=== PATIENT | female | born 1995 | race Caucasian/White ===

== ENCOUNTER → 2020-05-02 16:26 | Outpatient (CLI) | payer OTHER, SELFPAY ==
[2020-05-02] MEDS: COVID-19 VACC #1, MRNA(MOD) 100 MCG/0.5 ML VIAL IM (16:32)
== END ==
PROVIDERS: Visit Provider Internal Medicine
DX: Z23 Encounter for immunization (principal)
CPT/HCPCS: 0011A; 91301

== ENCOUNTER → 2020-05-30 16:27 | Outpatient (CLI) | payer OTHER, SELFPAY ==
[2020-05-30] MEDS: COVID-19 VACC #2, MRNA(MOD) 100 MCG/0.5 ML VIAL IM (16:40)
== END ==
PROVIDERS: Visit Provider Internal Medicine
DX: Z23 Encounter for immunization (principal)
CPT/HCPCS: 0012A; 91301

== ENCOUNTER → 2024-04-01 12:12 | Outpatient (CLI) | payer OTHER, SELFPAY ==
[2024-04-01 12:58] LABS: Add Manual Diff / Slide Review NO; Basophils Absolute Auto 0 /uL (0-100); Basophils Percent Auto 0.4 % (0-2); Eosinophils Absolute Auto 100 /uL (0-450); Eosinophils Percent Auto 1.2 % (2-4); Hematocrit 38.2 % (36-46); Hemoglobin 13.2 g/dL (12.0-16.0); Lymphocytes Absolute Auto 2100 /uL (1100-4500); Lymphocytes Percent Auto 29.1 % (25-40); Mean Corpuscular HGB Conc 34.6 % (30-36); Mean Corpuscular Hemoglobin 30.8 PG (26-34); Mean Corpuscular Volume 88.8 fL (80-100); Monocytes Absolute Auto 400 /uL (0-900); Monocytes Percent Auto 4.9 % (3-14); Neutrophils Absolute Auto 4700 /uL (1500-7000); Neutrophils Percent Auto 64.4 % (50-75); Platelet Count 165 X10^3/uL (150-400); Red Blood Cell Count 4.31 X10^6/uL (4.0-5.2); Red Cell Distribution Width 13.5 % (11.6-14.8); White Blood Cell Count 7.3 X10^3/uL (4.5-11.0)
[2024-04-01 13:19] LABS: Natera Collection Specimen Collected
[2024-04-01 13:21] LABS: Alanine Aminotransferase 15 IU/L (<35); Aspartate Aminotransferase 22 IU/L (14-36); BUN Creatinine Ratio 11.3 (6-22); Blood Urea Nitrogen 6 mg/dL (7-17); Estimated Glomerular Filt Rate > 60 mL/min (>60); Uric Acid 2.6 mg/dL (2.5-6.2)
[2024-04-03 10:11] LABS: RPR Screen Non Reactive (Non Reactive)
[2024-04-03 12:37] LABS: Varicella IgG Antibody Reactive (Non Reactive)
[2024-04-04 15:06] LABS: Hepatitis B Surface Antigen NEGATIVE s/c (NEGATIVE); Rubella Antibody IgG 7.7 IU/mL (>15)
[2024-04-04 15:22] LABS: HIV 1 & 2 Ab/Ag 4th Gen Combo NEGATIVE (NEGATIVE); Hep C Virus Ab w/Reflex Quant NEGATIVE s/c (NEGATIVE)
== END ==
PROVIDERS: PCP Family Medicine; Referring Provider Obstetrics & Gynecology; Visit Provider Obstetrics & Gynecology
DX: O13.9 Gestational [pregnancy-induced] hypertension without significant proteinuria, unspecified trimester (principal); Z3A.14 14 weeks gestation of pregnancy
CPT/HCPCS: 80055; 82565; 84450; 84460; 84520; 84550; 86787; 86803; 86850; 86900; 86901; 87086; 87389

== ENCOUNTER → 2024-05-04 15:18 | Outpatient (CLI) | payer OTHER, SELFPAY ==
[2024-05-07 20:07] LABS: AFP Value 72.7 ng/mL (.); Gest Age on Col Date 18.7 weeks (.); Insulin Dep Diabetes No (.); OSBR Risk 1IN 1278 (.); Results Report (.); Test Results *Screen Negative* (.)
[2024-05-11 10:03] LABS: PDF SCANNED
== END ==
PROVIDERS: PCP Family Medicine; Referring Provider Specialist; Visit Provider Specialist
DX: Z34.82 Encounter for supervision of other normal pregnancy, second trimester (principal); Z3A.19 19 weeks gestation of pregnancy
CPT/HCPCS: 36415; 82105

== ENCOUNTER → 2024-05-20 08:42 | Outpatient (CLI) | payer OTHER, SELFPAY ==
--- NOTE | 2024-05-20 08:44 | DI.US.S_ITS ---
PROCEDURE: US OB >= 14 WEEKS FETUS INDICATIONS: ANATOMY OUTSIDE/PRIOR DATING DATA: IU I and insemination date is indeterminate at time of exam. LMP-based estimated date of delivery (ELLIS): 09/25/2024 as provided.. First dating scan (date and location): 05/20/2024. Estimated date of delivery (ELLIS) from first dating scan: 09/21/2024 Working ELLIS is 09/25/2024 as provided by the referring clinician.. TECHNIQUE: Real-time scanning was performed of the fetus, with image documentation and biometric measurements. COMPARISON: None. FINDINGS: General: A single living intrauterine gestation is present. Presentation: Variable. Placenta: Placental position is posterior , and low-lying with the inferior margin of the placenta 1.8 cm above the internal cervical os. Amniotic fluid index: 19.6 cm, normal range is 5-24 cm. Single deepest vertical pocket is 7.4 cm. heart rate: 143 beats per minute. Maternal cervical canal: 4.8 cm long. Normal lower limit is 2.5 cm. biometrics: Biparietal diameter: 22 weeks 2 days Head circumference: 21 weeks 3 days Abdominal circumference: 22 weeks 4 days Femur length: 22 weeks 5 days Clinically estimated gestational age: 21 weeks 5 days Composite gestational age from present scan: 22 weeks 2 days Estimated weight and percentile: 513 g; 85th percentile Anatomic survey: Neuro: Ventricles are non-dilated at less than 10 mm. Cisterna magna is normal at 3-11 mm. Cerebellum is normal in size and morphology. Nuchal skin fold: Normal at less than 6 mm between 14-21 weeks gestational age. Face: Nose and lips, facial profile are normal. Spine: No evidence for spina bifida. Heart: 4-chambered heart is present, with normal ventricular outflow tracts. Diaphragm: Diaphragm is intact. Stomach: Left-sided stomach is present. Kidneys: No hydronephrosis. Normal is less than 5 mm in 2nd trimester, less than 7 mm in 3rd trimester. Cord: 3-vessel cord has orthotopic insertion. Bladder: Normal in size. Extremities: All 4 extremities identified. IMPRESSION: 1. Single living IUP with composite gestational age of 22 weeks 2 days corresponding to ultrasound ELLIS of 09/21/2024. 2. Unremarkable anatomic survey. 3. Low lying placenta and short-term follow-up ultrasound is recommended. We strive to produce accurate, complete, and clear reports of imaging services. To assist us in improving patient care, this report was composed using standard report templates and voice recognition software. Therefore, it may contain abnormal punctuation, insertions and/or omissions. Occasional wrong-word or sound-alike substitutions may occur. Though we review the report and make efforts to correct it, we do recommend that the report be read carefully in proper context to recognize any text inaccuracies. Dictated by: Edmond CHRISTINA Interpreted: Roman Weston MD on 05/20/2024 at 16:05 Transcribed by: LAUREN on 05/20/2024 at 16:08 Approved by: Roman Weston M.D. on 05/26/2024 at 23:23
== END ==
PROVIDERS: PCP Family Medicine; Referring Provider Specialist; Visit Provider Specialist
DX: Z36.89 Encounter for other specified antenatal screening (principal); O44.42 Low lying placenta NOS or without hemorrhage, second trimester; Z3A.22 22 weeks gestation of pregnancy
CPT/HCPCS: 76811

== ENCOUNTER → 2024-05-27 16:05 | Outpatient (CLI) | payer OTHER, SELFPAY ==
[2024-05-27 18:03] LABS: Hematocrit 39.4 % (36-46); Hemoglobin 13.7 g/dL (12.0-16.0); Platelet Count 150 X10^3/uL (150-400)
[2024-05-27 18:16] LABS: GTT (PREG) 1 Hour PP 50gm Dose 130 mg/dL (76-139)
== END ==
LOC: LAB 16:06
PROVIDERS: PCP Family Medicine; Referring Provider Obstetrics & Gynecology; Visit Provider Obstetrics & Gynecology
DX: Z34.82 Encounter for supervision of other normal pregnancy, second trimester (principal); Z3A.26 26 weeks gestation of pregnancy
CPT/HCPCS: 36415; 82950; 85014; 85018; 85049

== ENCOUNTER → 2024-07-06 15:50 | Outpatient (CLI) | payer OTHER, SELFPAY ==
[2024-07-08 14:36] LABS: Candida species Negative (Negative); Gardnerella vaginalis Negative (Negative); Trichomoas vaginalis Negative (Negative)
== END ==
PROVIDERS: PCP Family Medicine; Visit Provider Specialist
DX: N89.8 Other specified noninflammatory disorders of vagina (principal)
CPT/HCPCS: 87480; 87510; 87660

== ENCOUNTER → 2024-08-04 16:23 | Outpatient (CLI) | payer OTHER, SELFPAY ==
[2024-08-04 16:49] LABS: Platelet Count 132 X10^3/uL (150-400)
== END ==
PROVIDERS: PCP Family Medicine; Referring Provider Obstetrics & Gynecology; Visit Provider Obstetrics & Gynecology
DX: D69.6 Thrombocytopenia, unspecified (principal)
CPT/HCPCS: 36415; 85049

== ENCOUNTER → 2024-09-02 09:14 | Outpatient (CLI) | payer OTHER, SELFPAY ==
[2024-09-03 11:01] LABS: Strep Grp B PCR POS for Grp B Strep
== END ==
PROVIDERS: PCP Family Medicine; Visit Provider Obstetrics & Gynecology
DX: Z34.93 Encounter for supervision of normal pregnancy, unspecified, third trimester (principal); Z3A.36 36 weeks gestation of pregnancy
CPT/HCPCS: 87653

== ENCOUNTER → 2024-09-09 10:40 | Outpatient (CLI) | payer OTHER, SELFPAY ==
[2024-09-09 11:38] LABS: Platelet Count 107 X10^3/uL (150-400)
== END ==
PROVIDERS: PCP Family Medicine; Referring Provider Obstetrics & Gynecology; Visit Provider Obstetrics & Gynecology
DX: O99.113 Other diseases of the blood and blood-forming organs and certain disorders involving the immune mechanism complicating pregnancy, third trimester (principal); D69.6 Thrombocytopenia, unspecified; Z3A.37 37 weeks gestation of pregnancy
CPT/HCPCS: 36415; 85049

== ENCOUNTER 2024-09-09 10:44 | Outpatient (CLI) | payer OTHER, SELFPAY | END 2024-09-09 11:42 | disposition home or self-care (01) | LOC: LABOR 11:28 → OB 12:18 | PROVIDERS: PCP Family Medicine; Referring Provider Obstetrics & Gynecology; Visit Provider Obstetrics & Gynecology | DX: O36.8130 Decreased fetal movements, third trimester, not applicable or unspecified (principal); Z3A.37 37 weeks gestation of pregnancy | CPT/HCPCS: 36415; 59025; 85049; G0378; G0379 ==

== ENCOUNTER → 2024-09-21 12:24 | Outpatient (CLI) | payer OTHER, SELFPAY ==
[2024-09-21 13:11] LABS: Platelet Count 114 X10^3/uL (150-400)
== END ==
PROVIDERS: PCP Family Medicine; Referring Provider Obstetrics & Gynecology; Visit Provider Obstetrics & Gynecology
DX: D69.6 Thrombocytopenia, unspecified (principal)
CPT/HCPCS: 85049

== ENCOUNTER 2024-09-25 10:02 | Inpatient (IN) | payer OTHER, SELFPAY ==
[2024-09-25 14:02] LABS: Add Manual Diff / Slide Review NO; Basophils Absolute Auto 100 /uL (0-100); Basophils Percent Auto 0.7 % (0-2); Eosinophils Absolute Auto 0 /uL (0-450); Eosinophils Percent Auto 0.4 % (2-4); Hematocrit 33.1 % (36-46); Lymphocytes Absolute Auto 1900 /uL (1100-4500); Lymphocytes Percent Auto 19.5 % (25-40); Mean Corpuscular HGB Conc 33.3 % (30-36); Mean Corpuscular Hemoglobin 28.2 PG (26-34); Mean Corpuscular Volume 84.6 fL (80-100); Monocytes Absolute Auto 500 /uL (0-900); Monocytes Percent Auto 5.1 % (3-14); Neutrophils Absolute Auto 7300 /uL (1500-7000); Neutrophils Percent Auto 74.3 % (50-75); Platelet Count 100 X10^3/uL (150-400); Red Blood Cell Count 3.91 X10^6/uL (4.0-5.2); Red Cell Distribution Width 13.4 % (11.6-14.8); White Blood Cell Count 9.9 X10^3/uL (4.5-11.0)
[2024-09-25] MEDS: AMPICILLIN 2,000 MG in SODIUM CHLORIDE 0.9% 100 ML 200 MG IV (14:16)
[2024-09-25] MEDS: LACTATED RINGERS 1,000 ML 100 ML IV ×2 (14:16→19:12)
[2024-09-25] MEDS: CALCIUM CARBONATE 500 MG TAB 1000 MG PO (14:36)
[2024-09-25 14:59] VITALS: BP 118/82
--- NOTE | 2024-09-25 18:55 | PM.AN.REGBLK ---
Regional Block Pre-procedure Procedure: Continuous Lumbar Epidural for L&D Attending OB provider: Bonita Kwong PMH/ROS narrative: presenting in spontaneous labor, requesting ZHENG for labor pain. PMH + for GERD and endometriosis. PSH/Anesthesia history narrative: Previous vaginal delivery with epidural anesthesia. States epidural was unilateral at onset but leveled out over time, no other issues. Laparscopy and wisdom teeth without anesthetic complications. Exam narrative: See pre-anesthesia eval. ASA Class: II Labs: Hct 33.1 % (36-46) L 09/25/24 13:45 Plt Count 100 X10^3/uL (150-400) L 09/25/24 13:45 Medications: Current Medications Generic Name Dose Route Start Last Admin Trade Name Freq PRN Reason Stop Dose Admin Butorphanol Tartrate 0.5 mg 09/25/24 18:54 Butorphanol 1 Mg/Ml Vial IV 09/26/24 18:54 Q3HR PRN PRURITUS Calcium Carbonate 1,000 mg 09/25/24 14:02 09/25/24 14:36 Calcium Carbonate 500 Mg Tab PO 1,000 mg Q4HR PRN Administration Dyspepsia Carboprost Tromethamine 250 mcg 09/25/24 13:00 Carboprost 250 Mcg/Ml Ampul IM Q90M PRN Bleeding Diphenhydramine HCl 25 mg 09/25/24 18:54 Diphenhydramine 50 Mg/Ml Vial IV 09/26/24 18:54 Q3HR PRN PRURITUS Lactated Ringer's 1,000 mls @ 100 mls/hr 09/25/24 13:00 09/25/24 14:16 Lactated Ringers IV 09/25/24 22:59 100 mls/hr CONT IRA Administration Oxytocin/Lactated Ringer's 30 unit in 500 mls @ 200 mls/hr 09/25/24 13:00 Oxytocin Premix IV CONT PRN Bleeding Protocol Tranexamic Acid 1,000 mg/ 100 mls @ 600 mls/hr 09/25/24 13:00 Sodium Chloride IV NOW PRN Bleeding Ampicillin Sodium 1,000 mg/ 100 mls @ 200 mls/hr 09/25/24 13:15 Sodium Chloride IV Q4H IRA Lidocaine HCl 20 ml 09/25/24 13:00 Lidocaine 1% 20 Ml INJ INTRA-OP PRN Post Delivery Methylergonovine Maleate 0.2 mg 09/25/24 13:00 Methylergonovine 0.2 Mg Tablet PO Q6HR PRN Heavy Bleeding Methylergonovine Maleate 0.2 mg 09/25/24 13:00 Methylergonovine 0.2 Mg/Ml Vial IM NOW PRN Bleeding Metoclopramide HCl 10 mg 09/25/24 18:54 Metoclopramide 10 Mg/2 Ml Inj IV 09/26/24 18:54 Q4H PRN Nausea Mineral Oil 30 ml 09/25/24 13:00 Mineral Oil 30 Ml Udc TOP PRN PRN Version Misoprostol 800 mcg 09/25/24 13:00 Misoprostol 200 Mcg Tablet PA NOW PRN Bleeding Misoprostol 400 mcg 09/25/24 13:00 Misoprostol 200 Mcg Tablet SL NOW PRN Bleeding Nalbuphine HCl 5 mg 09/25/24 18:54 Nalbuphine 20 Mg/Ml Ampul IV Q6H PRN PRURITIS Naloxone HCl 0.2 mg 09/25/24 13:00 Naloxone 0.4 Mg/Ml Vial IV Q2MIN PRN Opiate Reversal Naloxone HCl 0.4 mg 09/25/24 18:54 Naloxone 0.4 Mg/Ml Vial IV Q2MIN PRN Opiate Reversal Naloxone HCl 0.1 mg 09/25/24 18:54 Naloxone 0.4 Mg/Ml Vial IV 09/25/24 18:55 NOW ONE Ondansetron HCl 4 mg 09/25/24 18:54 Ondansetron 4 Mg/2 Ml Inj IV 09/26/24 18:54 Q6HR PRN Nausea Oxytocin 10 unit 09/25/24 13:00 Oxytocin 10 Unit/Ml Vial IM NOW PRN Bleeding Allergies: Allergies Allergy/AdvReac Type Severity Reaction Status Date / Time No Known Drug Allergies Allergy Unverified 09/21/24 12:03 --: Platelet count is 100. There was no significant bleeding with needle insertion. Procedure Insertion date: 09/25/24 Insertion time: 18:33 Prep/Local: 1% lidocaine (3mL to interspace (CHG to back for skin prep)) Interspace: L3/4 Patient position: sitting Needle: 18 gauge [place] Loss of resistance with: saline SCOTTY at (cm): 6 (5.5) Catheter placed at SKIN (cm): 12 Catheter in SPACE (cm): 6 (6.5) Sensory level: T10 Insertion: No CSF, No Blood, No Paresthesia with insertion, No Paresthesia with injection and No Test dose reaction Initial Medications TEST DOSE time: 18:34 TEST DOSE: 1.5% lidocaine with epinephrine 1:200k (mL): 3 BOLUS DOSE time: 18:40 BOLUS DOSE (mL): 10 BOLUS DOSE med: other (infusate) Infusion INFUSION: 0.125% bupivacaine and with fentanyl 2 mcg/mL Initial rate (mL/hr): 10 Post-procedure Anesthesia date START: 09/25/24 Anesthesia time START: 18: Anesthesia date END: 09/25/24 Anesthesia time END: 22:10 Post-procedure Anesthesia Assessment: Yes CV function: HR/BP stable, Yes Resp function: RR/sat/airway adequate, Yes Post-op hydration adequate, Yes Pain control adequate, Yes Nausea & vomiting absent, Yes Temperature > 36 C, Yes Mental status appropriate and No Anesthesia complications
[2024-09-25] MEDS: AMPICILLIN 1,000 MG in SODIUM CHLORIDE 0.9% 100 ML 200 MG IV (19:09)
--- NOTE | 2024-09-25 20:24 | PM.OBHP.IH.1 ---
OB HPI Date/Time Date of admission: 09/25/24 Date Patient Seen: 09/25/24 Time Patient Seen: 18:55 History of Present Condition Chief complaint: frequent contractions and some leakage ELLIS Calculator Estimated Delivery Date Method Current WG Current Estimate 09/25/24 Conception 40w 0d Estimated Gestational Age (weeks): 40 : 2 Para: 1 Narrative: Patient is a 29-year-old 2 para 1 at 40 weeks' gestation who presents in active labor. care: good care, initiated at week # (14), number of visits (12) and pounds weight gain (37) Dating criteria OB: LMP confirmed by 1st trimester US Ultrasounds: normal 1st trimester US and normal mid trimester US Obstetrical complications: none Medical complications OB: other (Low platelets) Preadmission Labs Last OB Lab Results: Blood Type O Positive Today, 13:45 Antibody Screen Negative Today, 13:45 Hct, (36-46) 33.1 % L Today, 13:45 Hgb, (12.0-16.0) 11.0 g/dL L Today, 13:45 Hep Bs Antigen, (NEGATIVE) Negative s/c 04/01/24, 12:18 Hepatitis C Antibody, (NEGATIVE) Negative s/c 04/01/24, 12:18 Rubella Antibody, (>15) 7.7 IU/mL L 04/01/24, 12:18 VZV IgG Antibody, (Non Reactive) Reactive 04/01/24, 12:18 Glucose 1 Hr 50 gm, (76-139) 130 mg/dL 05/27/24, 17:08 Group B Strep (PCR) Pos for grp b strep H 09/02/24, 09:14 -: Chlamydia screen: negative, Gonorrhea screen: negative and Urine: negative -: PAP smear: Normal Genetic Screens: Cell-free DNA: Normal (low risk male) and Alpha-fetoprotein: Normal External Labs -: Urine: negative Prior (ies) Past Pregnancies Del. Date GA/Weeks Labor Lgth Wt Sex Route Outcome Anesthesia Place Delv Breastfeed Preg Comp Name 12/02/21 40.4 6 8 lb 14 oz Male vaginal live - full term epidural [facility] 20 months induced hyper- Richard Delivery Date: 12/02/21 Last Updated by: Jenna Villagomez RN PI developed ~39 wk Evaluation Evaluation Baseline heart rate: 135 Variability: Moderate (6-25) monitor accelerations: Present Monitor Decelerations: Absent Contraction Frequency (minutes): 3 Uterine Contraction Intensity: Strong/Firm Status: Category l Dilation (cm): 6 Effacement (%): 100 station: 0 Position of cervix: anterior Consistency: soft [facility] Medical History (Updated 09/25/24 @ 20:22 by Bonita Kwong MD) Anxiety (~2021) Chicken pox (~2000) Endometriosis (~2019) induced hypertension anxiety Ovarian cyst (~2019) Surgical History (Updated 04/29/24 @ 18:54 by Dagmar Cullen) Anesthesia S/P laparoscopic surgery [place] teeth extracted Family History (Updated 04/29/24 @ 18:56 by Dagmar Cullen) Grandfather Stomach cancer History of heart disease Grandmother Alzheimer's dementia Mother Depression Anxiety Father Hypertension Alcoholism Grandmother Breast cancer Grandfather Diabetes mellitus Cancer Uncle Anxiety Depression Family/Other Down syndrome Social History marital status: number of children: 1 household members: spouse and children lives independently: Yes caregiver/support person: Yes housing: house pets and animals: Yes (cat, aware of precautions) education level: college ([employer]) occupational status: unemployed current occupational exposures/hazards: No special stephanie needs: No travel history: over 6 months ago seatbelt use: always water heater temp set < 120 deg: Yes working smoke detector in home: Yes fire extinguisher in home: Yes carbon monox detector in home: Yes firearms in home: Yes firearms unloaded and locked: Yes do you feel safe at home: Yes Smoking Status: Never smoker second hand exposure: No alcohol intake: former (very occasionally when not ) substance use type: does not use during the past year weight has: other (fluctuated from ) well-balanced diet: about half the time daily servings fruits/ve or more times/day (almost entirely fruit, very little vegetables) caffeine: Yes (up to 100mg) Type(s) of exercise: walking Meds Home Medications and Allergies Home Medications ?Medication ?Instructions ?Recorded ?Confirmed ?Type vitamin-ferrous sulfate tab PO 03/29/24 09/21/24 History 27 mg iron-folic acid 0.8 mg tablet sertraline 25 mg tablet 25 mg PO DAILY 03/29/24 09/21/24 History pantoprazole 20 mg tablet,delayed 20 mg PO DAILY #30 tabs 08/16/24 09/21/24 Rx release (Protonix) Allergies Allergy/AdvReac Type Severity Reaction Status Date / Time No Known Drug Allergies Allergy Unverified 09/21/24 12:03 OB Exam Narrative Exam Narrative: Generally: Patient lying in bed, comfortable with epidural Lungs: Clear to auscultation bilaterally Cardiovascular: Regular rate and rhythm Fundal height: 39 cm Estimated weight: 8 lb Extremities: Trace edema Objective Labs 09/25/24 13:45 Labs: Laboratory Results - last 24 hr 09/25/24 13:45 WBC 9.9 RBC 3.91 L Hgb 11.0 L Hct 33.1 L MCV 84.6 MCH 28.2 MCHC 33.3 RDW 13.4 Plt Count 100 L Neut % (Auto) 74.3 Lymph % (Auto) 19.5 L [place] % (Auto) 5.1 Eos % (Auto) 0.4 L Baso % (Auto) 0.7 Neut # (Auto) 7300 H Lymph # (Auto) 1900 [place] # (Auto) 500 Eos # (Auto) 0 Baso # (Auto) 100 Blood Type O Positive Antibody Screen Negative Assessment and Plan Assessment and Plan Assessment and Plan narrative: Assessment: 29-year-old 2 para 1 at 40 weeks' gestation in active labor Group B strep positive, status post 2 doses of antibiotics Comfortable with epidural Plan: AROM with copious clear amniotic fluid Expected management to spontaneous vaginal delivery Time-Based Coding :: [TOTAL MINUTES] spent with patient and on the chart (including review of chart, obtaining history, exam, reviewing outside data, placing orders, documenting exam and treatment plan, and counseling patient) on [DATE].
--- NOTE | 2024-09-25 22:29 | P.PCNOB_ITS ---
Labor & Delivery Delivery date: 09/25/24 Delivery Time: 22:00 Intrapartal Events: None Cervical ripening method: none Induction method: none Delivery augmentation: rupture of membranes Delivery monitor: external FHT and external uterine Route of delivery: Episiotomy description: None L&D Laceration Description: Perineal - 1st Degree and Vaginal - 1st Degree Delivery repair: vicryl and chromic Quantitative Blood Loss: 674 Anesthesia Type: Epidural Complications: None Narrative: Patient complete and pushed for 10 minutes. At 10:00 p.m., a live male infant delivered spontaneously in the JULIETTE presentation. No nuchal cord. The remainder of the body delivered with slight difficulty. Patient placed into [facility]. No significant shoulder dystocia. Baby was placed on mom's abdomen. Due to some increased bleeding, the cord was double clamped and cut after 6 minutes. Cord bloods were obtained. Pitocin was given in the IV fluids after infant was born. The placenta delivered intact with a three-vessel cord at 10:06 p.m.. Fundus was massaged to firm. A first-degree vaginal/perineal laceration was repaired in the usual fashion. Hemostasis was achieved. Apgars 7 at 1 minute and 9 at 5 minutes. weight 9 lb 2.8 oz. . Epidural analgesia. Mom and infant stable to recovery. Baby 1: Infant gender: Male Presentation: vertex Position: Left Occiput Anterior Placenta delivery description: Spontaneous Cord Vessel Description: 3 Vessels score (1 min): 7 score (5 min): 9 weight: 9 lb 2.8 oz Plan for aftercare: Routine care
[2024-09-26] MEDS: LANOLIN OINT 7 GM 1 APPLIC TOP (01:28)
[2024-09-26] MEDS: WITCH HAZEL/GLYCERIN PADS 1 EACH TOP ×2 (01:28→18:29)
[2024-09-26] MEDS: DERMOPLAST SPRAY 20% 60 ML 1 SPRAY TOP ×2 (01:28→18:29)
[2024-09-26] MEDS: ACETAMINOPHEN 325 MG TABLET 650 MG PO ×3 (02:12→15:12)
[2024-09-26 07:23] LABS: Hematocrit 28.5 % (36-46); Hemoglobin 9.6 g/dL (12.0-16.0)
[2024-09-26] MEDS: IBUPROFEN 600 MG TABLET PO ×2 (08:54→15:12)
--- NOTE | 2024-09-26 17:42 | P.DS_ITS ---
Discharge Providers Provider Date of admission: 09/25/24 10:02 Discharge Date: 09/26/24 Primary care physician: Ashley Baptiste DO Consults: 09/25/24 13:01 Consult to Anesthesiology Urgent Comment: Consulting Provider: Anesthesiologist Reason for consultation: Epidural Has provider been notified: No 09/25/24 22:43 Consult to Senior Enterprise Architect Routine Comment: Discharge provider: Bonita Kwong MD Summary Hospital Course Date Patient Seen: 09/26/24 Time Patient Seen: 13:00 Diagnoses: Forty weeks gestation Group B strep positive Spontaneous vaginal delivery First-degree vaginal/perineal laceration Hospital Course: Patient is a 29-year-old 2 para 2 who presented on September 25, 2024 in active labor at 40 weeks gestation. She was group B strep positive. She received 2 doses of IV antibiotics. She received an epidural for pain management. Artificial rupture of membranes was performed when she was 7 cm dilated. She progressed to complete dilation and had a spontaneous vaginal delivery without complication. Her course was unremarkable and she was discharged home on day #1. Peripartum Data Infant Delivery Method: Natural Vaginal Laceration Description: Perineal - 1st Degree and Vaginal - 1st Degree Episiotomy description: None Procedures: IV antibiotics Epidural analgesia Artificial rupture of membranes Spontaneous vaginal delivery First-degree perineal/vaginal laceration repair [place] 1: Gender: Male Disposition of : home Status at Discharge Cognitive/behavioral status at discharge: oriented Functional status at discharge: independent ambulation Overall status at discharge: patient is progressing back to baseline Time Spent with Patient Time attestation: Total time spent providing and/or coordinating discharge services: Time spent: Less than 30 minutes Objective Labs 09/26/24 06:40 Labs: Laboratory Results - last 24 hr 09/26/24 06:40 Hgb 9.6 L Hct 28.5 L Exam Narrative Exam Narrative: Generally: Patient is sitting up in bed, nursing infant, no acute distress Fundus: Firm at U -1 Extremities: No edema, negative [place] Discharge Plan Discharge Plan Patient Disposition: Home Provider Discharge Comment: Call with fever, chills, or bleeding vaginally more than a pad in an hour Ibuprofen 600 mg every 6 hours as needed for cramping Tylenol 650 mg every 6 hours as needed Discharge orders & Medications Prescriptions: Continued vit-ferrous sulfat-FA 27 mg iron- 0.8 mg tablet PO sertraline 25 mg tablet 25 mg PO DAILY Discontinued pantoprazole [Protonix] 20 mg tablet,delayed release (DR/EC) 20 mg PO DAILY Qty: 30 2RF Follow up/Referrals: Bonita Kwong MD [Physician, PHARMACEUTICAL DEVELOPMENT TECHNICIAN] - 11/09/24 9:30 am Referral Note: Please follow-up for your appointment on Saturday November 09, 2024 at 9:30 am. Please arrive at 9:15 am! Diet/Activity/Treatments Diet: Regular Activity: Nothing in the vagina for 6 weeks Skin/Wound/Dressing Care Report to your healthcare provider any signs of infection, such as:: chills, fever, increased pain and unusual drainage Visit Report/Discharge Packet Instructions: DI for Hemorrhage, DI for Labor and Delivery, Vaginal , DI for Depression Stand Alone Forms: Discharge: Care, Patient Portal/API, Stroke Signs & Symptoms Discharge Data Primary Care Provider: Ashley Baptiste
[2024-09-26] MEDS: MEASLES,MUMPS,RUBELLA VACC/PF 0.5 ML VIAL SUBCUT (17:59)
[2024-09-26 19:21] VITALS: BP 110/73; PULSE 92; RESP 15; TEMP 36.2
== END 2024-09-26 19:10 | disposition home or self-care (01) | DRG 807 ==
PROVIDERS: Admitting Provider Obstetrics & Gynecology; PCP Family Medicine; Referring Provider Obstetrics & Gynecology; Visit Provider Obstetrics & Gynecology
DX: O99.12 Other diseases of the blood and blood-forming organs and certain disorders involving the immune mechanism complicating childbirth (principal); D69.6 Thrombocytopenia, unspecified; Z37.0 Single live birth; O99.824 Streptococcus B carrier state complicating childbirth; O70.0 First degree perineal laceration during delivery; Z3A.40 40 weeks gestation of pregnancy
CPT/HCPCS: 36415; 59050; 76815; 85014; 85018; 85025; 86850; 86900; 86901; G0379; J0290